=== PATIENT | male | born 1975 | race Caucasian/White ===

== ENCOUNTER → 2017-02-28 | Outpatient (CLI) | payer BC ==
--- NOTE | ~2017-02-28 | CR90 ---
[facility]. [facility] A Service of [facility] & [facility] RADIOLOGY TEXT RESULTS PATIENT: JACQUES PEREYRA LOCATION: [facility] : 77 UNIT #: [id number] AGE: [address]: Bill Portillo MD SEX: M ORDER DR: [id number] [address] [address] [id number] O MR#: [id number] Acc #: [id number] NAME: JACQUES PEREYRA : 1975 SEX: M STUDY DATE/TIME: 02/28/2017 10:46 UNIT: [facility] ROOM: STUDY DESCRIPTION: CR Elbow 2 View Lt Attending Physician: Bill Portillo M.D. Referring Physician: Bill Portillo M.D. Ordering Physician: Bill Portillo M.D. Primary Care Physician: Bill Portillo M.D. MEDICAL IMAGING REPORT This report is preliminary unless electronic signature is present. EXAM Left elbow 2 views 02/28/2017 HISTORY Left elbow pain and swelling for 3 weeks after hitting left elbow on a dumpster 3 weeks ago. FINDINGS AP and lateral examination of the elbow shows satisfactory articulation of the humerus with the proximal radius and ulna. There is no identifiable fracture, dislocation, joint effusion, or radiopaque foreign body in the soft tissues. IMPRESSION Normal elbow. Dictated by... Brayan Perez M.D. THIS IS AN ELECTRONICALLY VERIFIED REPORT Brayan Perez M.D. at 03/01/2017 8:13 AM Laurita TD: 02/28/2017 18:33 JOB #: [id number] MEDICAL IMAGING REPORT Page 1 of 1
== END | disposition home or self-care (01) ==
LOC: SRAD 10:42
DX: M25.522 Pain in left elbow (principal)
CPT/HCPCS: 73070